=== PATIENT | male | born 1955 | race Caucasian/White ===

== ENCOUNTER → 2017-06-12 | Outpatient (CLI) | payer OTHER ==
[~2017-06-12] VITALS: Ht 170.2 cm; Wt 96.0 kg
[~2017-06-12] MED LIST: ALLO100T PO; AMLO10TA55 PO; ASPI-891 PO; CLON0.2T PO; GLIP5TAB11 PO; LISI40TA4 PO
[2017-06-12 11:48] VITALS: BP 125/78
== END | disposition home or self-care (01) ==
LOC: SRCNTR 10:59
PROVIDERS: ATTEND Internal Medicine Clinical Cardiac Electrophysiology
DX: I10 Essential (primary) hypertension (principal); E11.9 Type 2 diabetes mellitus without complications; Z79.82 Long term (current) use of aspirin; Z79.84 Long term (current) use of oral hypoglycemic drugs; Z86.73 Personal history of transient ischemic attack (TIA), and cerebral infarction without residual deficits; Z95.0 Presence of cardiac pacemaker
CPT/HCPCS: G0463